=== PATIENT | male | born 1950 | race Hispanic/Latino ===

== ENCOUNTER 2018-09-29 10:00 | Outpatient (RCR) | payer MEDICARE, OTHER ==
--- NOTE | 2018-09-15 12:30 | NUR ---
ST Note: Pt was mistakenly told he was done for the day following his PT appointment and so went home. Will see pt at his next scheduled appointment.
--- NOTE | 2018-09-16 12:30 | NUR ---
ST Note: Pt/family called and declined any further speech language pathology intervention at this time. If pt decides to have speech therapy services in the future please re-consult.
[~2018-09-29 10:00] MED LIST: ATENOLOL25 MG PO; BRIMONIDINE TART5 ML OP; DILANTIN100 MG PO; DORZOLAMIDE HCL10 ML OP; FUROSEMIDE40 MG PO; GLIPIZIDE-METF1 EAC1; GLIPIZIDE5 MG PO; GLYBURIDE-METF1 EAC1 PO; KEPPRA500 MG PO; LATANOPROST2.5 ML OP; LEVETIRACETAM500 MG PO; LISINOPRIL2.5 MG PO; METFORMIN HCL500 MG PO; PRAVASTATIN SOD20 MG PO; SERTRALINE HCL50 MG PO; TAMSULOSIN HCL0.4 MG PO
== END 2018-09-30 ==
LOC: PT 10:00
PROVIDERS: ATTEND Physical Medicine & Rehabilitation
DX: G93.40 Encephalopathy, unspecified (principal); Z74.09 Other reduced mobility; M62.81 Muscle weakness (generalized); R53.1 Weakness
CPT/HCPCS: 92523; 97139

== ENCOUNTER → 2018-10-31 | Outpatient (RCR) | payer MEDICARE, OTHER | LOC: PT 10-01 09:52 | PROVIDERS: ATTEND Physical Medicine & Rehabilitation | DX: G93.40 Encephalopathy, unspecified (principal); Z74.09 Other reduced mobility; M62.81 Muscle weakness (generalized) ==

== ENCOUNTER 2018-11-12 09:54 | Outpatient (RCR) | payer MEDICARE, OTHER | END 2018-11-30 | LOC: PT 09:54 | PROVIDERS: ATTEND Physical Medicine & Rehabilitation | DX: G93.40 Encephalopathy, unspecified (principal); Z74.09 Other reduced mobility; M62.81 Muscle weakness (generalized) ==

== ENCOUNTER 2018-12-15 10:00 | Outpatient (RCR) | payer MEDICARE, OTHER | END 2018-12-31 | LOC: PT 10:00 | PROVIDERS: ATTEND Physical Medicine & Rehabilitation | DX: G93.40 Encephalopathy, unspecified (principal); Z74.09 Other reduced mobility; M62.81 Muscle weakness (generalized) | CPT/HCPCS: 97139 ==

== ENCOUNTER → 2021-07-18 | Outpatient (CLI) | payer MEDICARE ==
[~2021-07-18] MED LIST changes: +CLOPIDOGREL BISULFATE 75 MG TAB ONE
== END ==
LOC: RAD 11:27
DX: R10.9 Unspecified abdominal pain (principal)
CPT/HCPCS: 74018

== ENCOUNTER 2024-06-09 19:15 | Emergency (ER) | payer MEDICARE, OTHER ==
[~2024-06-09] VITALS: Ht 165.1 cm; Wt 77.1 kg
[~2024-06-09 19:15] MED LIST changes: -CLOPIDOGREL BISULFATE 75 MG TAB ONE; +CLOPIDOGREL75 MG PO; +ENTRESTO 24 MG1 EACH PO; +FEROSUL325 MG PO; +FINASTERIDE5 MG PO; +LASIX20 MG PO; +LEVAQUIN PO; +LEVETIRACETAM1000 MG PO; +LINZESS72 MCG PO; +METFORMIN HCL750 MG PO; +SIMBRINZA 1%-0.28 M1 OU; +TIMOPTIC 0.5%1 EACH OU; +ZYRTEC10 MG PO
[2024-06-09 20:20] VITALS: TEMP 98.6
[2024-06-09 21:18] LABS: BASOPHILS % 0.2 % (0.0-1.0); EOSINOPHILS # (AUTO) 0.3 (0.0-0.4); EOSINOPHILS % 2.9 % (0.0-6.0); HEMATOCRIT 36.3 % (38.2-49.6); HEMOGLOBIN 11.3 g/dL (14.0-18.0); LYMPHOCYTES # (AUTO) 1.8 (1.0-3.2); LYMPHOCYTES % 18.9 % (18.0-39.1); MEAN CORPUSCULAR HEMOGLOBIN 33.1 pg (28-32); MEAN CORPUSCULAR HGB CONC 31.1 g/dL (31-35); MEAN CORPUSCULAR VOLUME 106.5 fL (81-99); MONOCYTES # (AUTO) 0.5 (0.2-0.8); MONOCYTES % 5.3 % (4.4-11.3); NEUTROPHILS # (AUTO) 6.9 (2.1-6.9); NEUTROPHILS % 72.3 % (38.7-80.0); PLATELET COUNT 199 x10e3/uL (140-360); RED BLOOD COUNT 3.41 x10e6/uL (4.3-5.7); RED CELL DISTRIBUTION WIDTH 13.7 % (11.7-14.4); WHITE BLOOD COUNT 9.54 x10e3/uL (4.8-10.8)
[2024-06-09 21:32] LABS: INR 0.97; PROTHROMBIN TIME 13.5 seconds (11.9-14.5)
[2024-06-09 21:42] LABS: ALBUMIN 4.3 g/dL (3.5-5.0); ALBUMIN/GLOBULIN RATIO 1.7 (0.8-2.0); ANION GAP 15.1 mmol/L (8-16); BILIRUBIN,TOTAL 0.2 mg/dL (0.2-1.2); CALCIUM 9.4 mg/dL (8.4-10.2); CREATININE, SERUM 0.98 mg/dL (0.72-1.25); POTASSIUM 4.1 mmol/L (3.5-5.1); TOTAL PROTEIN 6.9 g/dL (6.5-8.1)
[2024-06-10] MEDS: LEVETIRACETAM 500MG/5ML VIAL 1,000 MG in SODIUM CHLORIDE 0.9% 100 ML IV STA (00:03)
[2024-06-10 01:26] VITALS: PULSE 106; RESP 19; O2SAT 98
== END 2024-06-10 01:38 | disposition other institution (70) ==
LOC: ER 19:36
DX: S06.6X0A Traumatic subarachnoid hemorrhage without loss of consciousness, initial encounter (principal); W01.198A Fall on same level from slipping, tripping and stumbling with subsequent striking against other object, initial encounter; Y93.01 Activity, walking, marching and hiking; Y92.89 Other specified places as the place of occurrence of the external cause; I10 Essential (primary) hypertension; E11.65 Type 2 diabetes mellitus with hyperglycemia; I50.9 Heart failure, unspecified; I25.10 Atherosclerotic heart disease of native coronary artery without angina pectoris; G40.909 Epilepsy, unspecified, not intractable, without status epilepticus; E78.5 Hyperlipidemia, unspecified; F32.A Depression, unspecified; H40.9 Unspecified glaucoma; R94.31 Abnormal electrocardiogram [ECG] [EKG]; I25.2 Old myocardial infarction; Z95.1 Presence of aortocoronary bypass graft; Z86.73 Personal history of transient ischemic attack (TIA), and cerebral infarction without residual deficits
CPT/HCPCS: 36415; 70450; 70486; 80053; 85025; 85610; 93005; 99284; J1953; J7050

== ENCOUNTER 2024-12-03 07:11 | Inpatient (IN) | payer MEDICARE, OTHER ==
[~2024-12-03] VITALS: Ht 165.1 cm; Wt 73.9 kg
[~2024-12-03 07:11] MED LIST changes: +EYE; +LIPITOR20 MG PO; +METFORMIN HCL500 M1 PO; +PANTOPRAZOLE SO40 MG PO; +PHENYTOIN SODI100 MG PO; +PREDNISONE; +ROZEREM8 MG PO; +SERTRALINE HCL100 MG PO; +SIMBRINZA 1%-0.28 M1; +VESICARE5 MG PO
[2024-12-03] MEDS ORDERED: GENTAMICIN 80MG/NS 100 ML 100 ML IV ONE (07:56)
[2024-12-03] MEDS ORDERED: SODIUM CHLORIDE 0.9% 1000ML 1,000 ML ONE (07:56)
[2024-12-03] MEDS ORDERED: MEROPENEM 1 GM VIAL ONE (07:56)
[2024-12-03] MEDS ORDERED: FENTANYL CITRATE/PF 100MCG/2 ML INJ ONE ×2 (08:14→10:18)
[2024-12-03] MEDS ORDERED: LIDOCAINE HCL 2% LOCAL INJ 5 ML SDV VIAL INJ ONE (08:14)
[2024-12-03] MEDS ORDERED: ONDANSETRON HCL INJ 2MG/ML 2ML 2 MG/ML VIAL ONE (08:15)
[2024-12-03] MEDS ORDERED: SEVOFLURANE INHAL SOLN 250 ML PEN BTL ONE (08:15)
[2024-12-03] MEDS ORDERED: PROPOFOL IV EMULSION 10 MG/ML 20 ML VIAL ONE ×2 (08:15→08:17)
[2024-12-03 08:41] LABS: BASOPHILS % 0.2 % (0.0-1.0); EOSINOPHILS % 5.0 % (0.0-6.0); LYMPHOCYTES % 38.5 % (18.0-39.1); MONOCYTES % 8.2 % (4.4-11.3); NEUTROPHILS % 47.7 % (38.7-80.0); RED CELL DISTRIBUTION WIDTH 14.8 % (11.7-14.4)
[2024-12-03 09:08] LABS: EST GLOMERULAR FILTRATION RATE 78.0 ML/MIN (>=60)
[2024-12-03] MEDS ORDERED: EPHEDRINE SULFATE INJ 50 MG/ML VIAL ONE (09:42)
[2024-12-03] MEDS ORDERED: DEXAMETHASONE SOD PHOS INJ 4 MG/ML SDV ONE (10:18)
[2024-12-03] MEDS ORDERED: DIPHENHYDRAMINE HCL 25 MG CAP PO PRN (11:30)
[2024-12-03] MEDS ORDERED: ACETAMINOPHEN 1000 MG/100 ML IV PRN (11:30)
[2024-12-03 12:05] LABS: BASOPHILS % 0.2 % (0.0-1.0); EOSINOPHILS % 2.8 % (0.0-6.0); LYMPHOCYTES % 22.2 % (18.0-39.1); MONOCYTES % 5.3 % (4.4-11.3); NEUTROPHILS % 69.2 % (38.7-80.0); RED CELL DISTRIBUTION WIDTH 14.9 % (11.7-14.4)
[2024-12-03 12:30] VITALS: BP 117/58; PULSE 76; RESP 18; TEMP 97.6; O2SAT 100
[2024-12-03 12:30] LABS: EST GLOMERULAR FILTRATION RATE 94.0 ML/MIN (>=60)
[2024-12-03 13:02] VITALS: PULSE 75; RESP 22; O2SAT 98
[2024-12-03] MEDS: SODIUM CHLORIDE 0.9% 1000ML 1,000 ML IV SCH (13:38)
[2024-12-03 16:00] VITALS: BP 118/66; PULSE 78; RESP 18; TEMP 97.8; O2SAT 100
[2024-12-03] MEDS: SENNA-S TABLET PO SCH (17:49)
[2024-12-03] MEDS ORDERED: LEVETIRACETAM 500 MG TAB PO SCH (18:30)
[2024-12-03 19:12] VITALS: BP 118/66; PULSE 78; RESP 18; TEMP 97.8; O2SAT 100
[2024-12-03] MEDS: LEVETIRACETAM 500 MG TAB PO SCH (20:43)
[2024-12-03] MEDS: ATORVASTATIN 40 MG TAB PO SCH (20:44)
[2024-12-03 22:45] VITALS: BP 125/67; PULSE 65; RESP 18; TEMP 98.3; O2SAT 96
[2024-12-04] VITALS (7 sets, daily range): BP systolic 115–129; BP diastolic 44–64; PULSE 68–78; RESP 17–18; TEMP 97.5–98.5; O2SAT 95–100
[2024-12-04 05:24] LABS: BASOPHILS % 0.3 % (0.0-1.0); EOSINOPHILS % 2.9 % (0.0-6.0); LYMPHOCYTES % 26.0 % (18.0-39.1); MONOCYTES % 9.1 % (4.4-11.3); NEUTROPHILS % 61.0 % (38.7-80.0); RED CELL DISTRIBUTION WIDTH 14.6 % (11.7-14.4)
[2024-12-04 05:52] LABS: EST GLOMERULAR FILTRATION RATE 95.0 ML/MIN (>=60)
[2024-12-04] MEDS: PHENYTOIN SODIUM EXT REL 100 MG CAP PO SCH (09:25)
[2024-12-04] MEDS: SACUBITRIL/VALSARTAN 24MG/26MG 1 EA TAB PO SCH (09:25)
[2024-12-04] MEDS ORDERED: DEXTROSE 50% SYRINGE 50 ML IV PRN (10:45)
[2024-12-04] MEDS: INSULIN LISPRO 100 UNIT/1 ML 3ML VIAL SQ SCH (11:30)
[2024-12-04] MEDS: MAGNESIUM SULF 1GRAM/DEXTROSE 100 ML IV ONE (11:53)
[2024-12-04 19:24] LABS: EST GLOMERULAR FILTRATION RATE 91.0 ML/MIN (>=60)
[2024-12-04] MEDS ORDERED: NON-FORMULARY MEDICATION (Ramelteon (Rozerem) 1 TAB) PO SCH (21:00)
[2024-12-04] MEDS: SERTRALINE HCL 100 MG TAB PO SCH (21:44)
[2024-12-04] MEDS ORDERED: MELATONIN 5 MG TABLET PO PRN (22:15)
[2024-12-05] VITALS: BP 120/65; PULSE 77; RESP 20; TEMP 97.8; O2SAT 100
[2024-12-05] MEDS: ACETAMINOPHEN/CODEINE 300MG - 30MG TAB PO PRN (03:43)
[2024-12-05 04:00] VITALS: BP 115/69; PULSE 84; RESP 20; TEMP 98.7; O2SAT 100
[2024-12-05 05:37] LABS: BASOPHILS % 0.2 % (0.0-1.0); EOSINOPHILS % 3.3 % (0.0-6.0); LYMPHOCYTES % 25.5 % (18.0-39.1); MONOCYTES % 10.4 % (4.4-11.3); NEUTROPHILS % 60.2 % (38.7-80.0); RED CELL DISTRIBUTION WIDTH 14.8 % (11.7-14.4)
[2024-12-05] MEDS: PHENAZOPYRIDINE HCL 100 MG TAB PO PRN (05:43)
[2024-12-05 05:51] LABS: EST GLOMERULAR FILTRATION RATE 95.0 ML/MIN (>=60)
[2024-12-05 07:36] VITALS: BP 119/67; PULSE 72; RESP 16; TEMP 97.5; O2SAT 97
[2024-12-05 07:49] VITALS: BP 119/67; PULSE 72; RESP 16; TEMP 97.5; O2SAT 97
[2024-12-05] MEDS: LEVOFLOXACIN 500MG/D5W 100ML 100 ML IV SCH (08:34)
[2024-12-05] MEDS: POLYETHYLENE GLYCOL 3350 17 GM PACK PO PRN (08:34)
[2024-12-05 12:34] VITALS: BP 99/59; PULSE 67; RESP 18; TEMP 97.8; O2SAT 100
[2024-12-05 20:00] VITALS: BP 94/57; PULSE 64; RESP 18; TEMP 98.4; O2SAT 100
[2024-12-06] VITALS: BP 108/65; PULSE 68; RESP 17; TEMP 97.9; O2SAT 100
[2024-12-06 04:00] VITALS: BP 115/66; PULSE 68; RESP 20; TEMP 97.6; O2SAT 98
[2024-12-06 05:43] LABS: BASOPHILS % 0.3 % (0.0-1.0); EOSINOPHILS % 4.2 % (0.0-6.0); LYMPHOCYTES % 29.0 % (18.0-39.1); MONOCYTES % 10.6 % (4.4-11.3); NEUTROPHILS % 55.6 % (38.7-80.0); RED CELL DISTRIBUTION WIDTH 15.0 % (11.7-14.4)
[2024-12-06 06:03] LABS: EST GLOMERULAR FILTRATION RATE 92.0 ML/MIN (>=60)
[2024-12-06 08:00] VITALS: BP 125/67; PULSE 70; RESP 18; TEMP 98.3; O2SAT 98
[2024-12-06] MEDS: SACUBITRIL/VALSARTAN 24MG/26MG 1 EA TAB PO SCH (09:16)
[2024-12-06 12:00] VITALS: BP 95/57; PULSE 75; RESP 19; TEMP 98; O2SAT 97
[2024-12-06 12:45] VITALS: BP 150/67; PULSE 70; RESP 18; TEMP 98.3; O2SAT 98
[2024-12-06 15:41] VITALS: BP 103/63; PULSE 66; RESP 18; TEMP 97.8; O2SAT 100
== END 2024-12-06 17:12 | disposition home or self-care (01) | DRG 713 ==
LOC: OR 07:11 → PACU V 11:26 → MED/SURG 12:20
PROVIDERS: ADMIT Family Medicine Adult Medicine; ATTEND Family Medicine Adult Medicine
PROC: BT140ZZ Fluoroscopy of Kidneys, Ureters and Bladder using High Osmolar Contrast (ICD-10-PCS; 2024-12-03)
PROC: 0V508ZZ Destruction of Prostate, Via Natural or Artificial Opening Endoscopic (ICD-10-PCS; principal; 2024-12-03 09:00)
DX: N40.1 Benign prostatic hyperplasia with lower urinary tract symptoms (principal); N13.8 Other obstructive and reflux uropathy; N39.0 Urinary tract infection, site not specified; Z16.12 Extended spectrum beta lactamase (ESBL) resistance; R31.9 Hematuria, unspecified; I25.10 Atherosclerotic heart disease of native coronary artery without angina pectoris; I11.0 Hypertensive heart disease with heart failure; E78.5 Hyperlipidemia, unspecified; D50.9 Iron deficiency anemia, unspecified; E11.319 Type 2 diabetes mellitus with unspecified diabetic retinopathy without macular edema; G40.909 Epilepsy, unspecified, not intractable, without status epilepticus; R00.1 Bradycardia, unspecified; E78.00 Pure hypercholesterolemia, unspecified; I77.9 Disorder of arteries and arterioles, unspecified; B96.1 Klebsiella pneumoniae [K. pneumoniae] as the cause of diseases classified elsewhere; N32.89 Other specified disorders of bladder; R33.9 Retention of urine, unspecified; R53.81 Other malaise; F32.A Depression, unspecified; G47.00 Insomnia, unspecified; R94.31 Abnormal electrocardiogram [ECG] [EKG]; I50.9 Heart failure, unspecified; H54.8 Legal blindness, as defined in USA; I44.0 Atrioventricular block, first degree; Q54.1 Hypospadias, penile; Z86.74 Personal history of sudden cardiac arrest; Z98.61 Coronary angioplasty status; Z95.1 Presence of aortocoronary bypass graft; Z86.73 Personal history of transient ischemic attack (TIA), and cerebral infarction without residual deficits; Z79.84 Long term (current) use of oral hypoglycemic drugs; Z79.02 Long term (current) use of antithrombotics/antiplatelets
CPT/HCPCS: 36415; 51798; 71046; 74420; 80048; 80053; 80185; 82948; 83735; 85025; 87086; 87186; 93005; 94799; C1758; J0692; J1100; J1580; J1956; J2003; J2185; J2405; J3475; J7030